=== PATIENT | male | born 1940 | race Caucasian/White ===

== ENCOUNTER 2016-10-21 16:03 | Inpatient (IN) | payer MEDICAID, OTHER ==
[~2016-10-21 16:03] MED LIST: Vancomycin 1gm in NS 250ml 1 GM/250 ML BAG IVPB SCH
[2016-10-21 16:26] VITALS: BMI 33.0
--- NOTE | 2016-10-21 17:04 | ED PDOC ---
Arrival/HPI - General Chief Complaint: Lower Extremity Problem/Injury Time Seen by Provider: 10/21/16 16:35 Historian: Patient - History of Present Illness Narrative History of Present Illness (Text): 10/21/16 17:06 A 75 year old male presents to the emergency department complaining of ten day duration skin breakage over left marc. Patient denies any chest pain, shortness of breath, fever, chills or any other complaints at this time. Time/Duration: Other (10 days) Symptom Onset: Sudden Symptom Course: Unchanged Activities at Onset: Rest Context: Home Past Medical History - Provider Review Nursing Documentation Reviewed: Yes - Infectious Disease Hx of Infectious Diseases: None - Tetanus Immunization Tetanus Immunization: Unknown - Past Medical History Past Medical History: No Previous - Cardiac Hx Cardiac Disorders: No - Pulmonary Hx Respiratory Disorders: No - Neurological Hx Neurological Disorder: No - HEENT Hx HEENT Disorder: No - Renal Hx Renal Disorder: Yes Hx Kidney Stones: Yes - Endocrine/Metabolic Hx Endocrine Disorders: No - Hematological/Oncological Hx Blood Transfusions: No Hx Blood Transfusion Reaction: No - Integumentary Hx Dermatological Disorder: No Hx Basal Cell Carcinoma: No - Musculoskeletal/Rheumatological Hx Musculoskeletal Disorders: No Hx Falls: No - Gastrointestinal Hx Gastrointestinal Disorders: Yes Hx Gastroesophageal Reflux: Yes - Genitourinary/Gynecological Hx Genitourinary Disorders: Yes Hx Prostate Problems: Yes (enlarged) - Psychiatric Hx Psychophysiologic Disorder: No Hx Substance Use: No - Past Surgical History Past Surgical History: No Previous - Anesthesia Hx Anesthesia: No Hx Anesthesia Reactions: No Hx Malignant Hyperthermia: No - Suicidal Assessment Feels Threatened In Home Enviroment: No Family/Social History - Physician Review Nursing Documentation Reviewed: Yes Family/Social History: No Known Family HX Smoking Status: Former Smoker Hx Alcohol Use: No Hx Substance Use: No Hx Substance Use Treatment: No Allergies/Home Meds Allergies/Adverse Reactions: Allergies No Known Allergies Allergy (Verified 10/21/16 16:26) Home Medications: Home Meds Medication Instructions Recorded Confirmed Glucosamine Sulfate 1 cap PO DAILY 03/05/14 10/21/16 Aspirin [Aspirin Chewable] 1 tab PO DAILY 03/26/15 10/21/16 Review of Systems - Physician Review All systems were reviewed & negative as marked: Yes Physical Exam - Physical Exam Narrative Physical Exam (Text): 10/21/16 17:04- Review of Systems Constitutional: Normal. absent: Fatigue, Weight Change, Fevers, chills Eyes: Normal ENT: Normal Respiratory: Normal absent: SOB, Cough, Sputum Cardiovascular: Normal absent: Chest pain, Palpitations, Syncope Gastrointestinal: Normal absent: Abdominal pain, Diarrhea, Nausea, Vomiting Genitourinary: Normal. absent: Dysuria, Frequency, Hematuria Musculoskeletal: Normal. absent: Arthralgias, Back Pain, Neck Pain Skin: left marc skin breakage Neurological: Normal absent: Focal Weakness Endocrine: Normal Hemo/Lymphatic: Normal Psychiatric: Normal - Physical exam Patient appears age appropriate, speaking full sentences without difficulty - Systems Exam Head: Present: Atraumatic, Normocephalic Pupils: Present: PERRL Extraocular Muscles: Present: EOMI Conjunctiva: Present: Normal Mouth: Present: Moist Mucous Membranes Neck: Present: Normal Range of Motion. No: MIDLINE TENDERNESS, Paraspinal Tenderness Respiratory/Chest: Present: Clear to Auscultation, Good Air Exchange. No: Respiratory Distress, Accessory Muscle Use, Tachypnic Cardiovascular: Present: Regular Rate and Rhythm, Normal S1, S2, Peripheral Pulses Present. No: Murmurs Abdomen: Present: Normal Bowel Sounds, No: Tenderness, Peritoneal Signs, Rebound, Guarding, Distention Back: Present: Normal Inspection. No: Midline Tenderness, Paraspinal Tenderness Upper Extremity: Present: Normal Inspection. No: Cyanosis, Edema Lower Extremity: Present: tenderness to palpation of left marc, cellulitis in region, stage 2 ulceration approximately 3 cm X 3 cm. Neurological: Present: GCS=15, Speech Normal, cranial nerves II through XII fully intact with no cerebellar abnormality, neuro-sensory fully intact. No focal neurological deficits. Skin: Present: Warm, Dry, Normal Color. No: Rashes Lymphatic: Present: OX3, NI, NC Psychiatric: Present: Alert, Oriented x 3, Normal Insight, Normal Concentration Vital Signs Reviewed: Yes Vital Signs Temp Pulse Resp BP Pulse Ox 10/21/16 17:40 80 20 119/78 98 10/21/16 16:29 98.6 F 86 18 130/78 95 Temperature: Afebrile Blood Pressure: Normal Pulse: Regular Respiratory Rate: Normal Appearance: Positive for: Well-Appearing, Non-Toxic, Comfortable Pain Distress: None Mental Status: Positive for: Alert and Oriented X 3 Medical Decision Making ED Course and Treatment: 10/21/16 17:02 Impression: A 75 year old male with skin breakage over left marc. On physical exam, patient has tenderness to palpation over left marc area, cellulitis in region, stage 2 ulceration approximately 3 cm X 3 cm. Differential Diagnosis included but are not limited to: cellulitis, venous insufficiency Plan: -- chest xray -- US lower extremity -- labs -- Reassess and disposition Prior Visits: Notes and results from previous visits were reviewed. Patient was last reported to the emergency department on 06/19/16 for evaluation of hyperglycemia. Progress Notes: 10/21/16 17:55 chest xray: Creator : TRANG WAGGONER MD IMPRESSION: No active pulmonary disease. 10/21/16 19:20 prelim read as per US tech, negative for DVT. 10/21/16 20:15 pt states he already took PO abx outpatient pt agreeable with admission to the hospital for IV abx 10/21/16 21:04 dw and signed out to Dr. Sanchez - Lab Interpretations Lab Results: 10/21/16 17:20 10/21/16 17:20 Lab Results 10/21/16 17:20: PT 11.9 H, INR 1.10 H, APTT 27.5 10/21/16 17:20: WBC 4.2 L D, RBC 4.62, Hgb 13.3 L, Hct 42.3, MCV 91.6, MCH 28.8 , MCHC 31.4, RDW 13.4, Plt Count 126, MPV 12.3 H, Gran % 64.3, Lymph % (Auto) 18.2 L, [place] % (Auto) 14.6 H, Eos % (Auto) 2.4, Baso % (Auto) 0.5, Gran # 2.68, Lymph # 0.8 L, [place] # 0.6, Eos # 0.1, Baso # 0.02 10/21/16 17:20: Sodium 142, Potassium 4.2, Chloride 104, Carbon Dioxide 24, Anion Gap 18, BUN 24 H, Creatinine 1.6 H, Est GFR ( Amer) 51, Est GFR ( Non-Af Amer) 42, Random Glucose 116 H, Calcium 9.0, Total Bilirubin 2.8 H, AST 21, ALT 19, Alkaline Phosphatase 50, NT-Pro-B Natriuret Pep 326, Total Protein 7.2, Albumin 4.3, Globulin 2.9, Albumin/Globulin Ratio 1.5 I have reviewed the lab results: Yes - RAD Interpretation Radiology Orders: 10/21/16 16:55 CHEST PORTABLE [RAD] Stat 10/21/16 16:56 DUPLEX LOWER EXTRM VEIN BILAT [US] Stat - Medication Orders Current Medication Orders: Vancomycin HCl (Vancomycin 1gm) 1 gm in 250 mls @ 133.333 mls/hr IVPB STAT STA PRN Reason: Protocol Stop: 10/21/16 22:07 - Scribe Statement The provider has reviewed the documentation as recorded by the Jovana Aguirre Provider Scribe Attestation: All medical record entries made by the Scribe were at my direction and personally dictated by me. I have reviewed the chart and agree that the record accurately reflects my personal performance of the history, physical exam, medical decision making, and the department course for this patient. I have also personally directed, reviewed, and agree with the discharge instructions and disposition. Disposition/Present on Arrival - Present on Arrival Any Indicators Present on Arrival: No History of DVT/PE: No History of Uncontrolled Diabetes: No Urinary Catheter: No History of Decub. Ulcer: No History Surgical Site Infection Following: None - Disposition Have Diagnosis and Disposition been Completed?: Yes Diagnosis: Cellulitis Disposition: HOSPITALIZED Disposition Time: 21:05 Patient Plan: Admission Condition: FAIR Discharge Instructions (ExitCare): Cellulitis (ED) Referrals: Rena Leal MD [Primary Care Provider] - Follow up with primary
[2016-10-21 17:45] LABS: BASO # 0.02 K/mm3 (0.0-2.0); BASO % 0.5 % (0.0-3.0); EOS # 0.1 (0.0-0.7); EOS % 2.4 % (1.5-5.0); GRAN # 2.68 (1.4-6.5); GRAN % 64.3 % (50.0-68.0); HEMOGLOBIN 13.3 gm/dL (14.0-18.0); LYMPH # 0.8 (1.2-3.4); LYMPH % 18.2 % (22.0-35.0); MEAN CELL VOLUME 91.6 fL (80.0-105.0); MEAN CORPUSCULAR HEMOGLOBIN 28.8 pg (25.0-35.0); MEAN CORPUSCULAR HGB CONC 31.4 g/dl (31.0-37.0); MEAN PLATELET VOLUME 12.3 fl (7.0-11.0); MONO # 0.6 (0.1-0.6); MONO % 14.6 % (1.0-6.0); PLATELET COUNT 126 10^3/uL (120.0-450.0); RBC 4.62 10^6/uL (3.5-6.1); RED CELL DISTRIBUTION WIDTH 13.4 % (11.5-14.5); WHITE BLOOD COUNT 4.2 10^3/ul (4.5-11.0)
[2016-10-21 17:51] LABS: ALB/GLOB RATIO 1.5 (1.1-1.8); ALBUMIN 4.3 g/dL (3.0-4.8)
[2016-10-21 17:52] LABS: INR 1.1 (0.93-1.08); PARTIAL THROMBOPLASTIN TIME 27.5 Seconds (23.7-30.8); PROTHROMBIN TIME 11.9 Seconds (9.9-11.8)
--- NOTE | 2016-10-21 17:52 | RAD ---
HISTORY: cough COMPARISON: 03/27/2015 FINDINGS: LUNGS: The lungs are well inflated and clear. PLEURA: No significant pleural effusion identified, no pneumothorax apparent. CARDIOVASCULAR: Normal. OSSEOUS STRUCTURES: No significant abnormalities. VISUALIZED UPPER ABDOMEN: Normal. OTHER FINDINGS: None. IMPRESSION: No active pulmonary disease.
[2016-10-21] MEDS ORDERED: Vancomycin 1gm in NS 250ml 1 GM/250 ML BAG IVPB STA (20:15)
--- NOTE | 2016-10-22 02:39 | CP.PCM.HP ---
Addendum entered and electronically signed by Logan Saucedo MD 08:51: Constitutional: a&o x 4, nad Head and Neck: neck supple, no jvd, trachea midline, carotid midline,no cervical /head mass Eyes: jessenia, nonicteric sclera, eom intact ENT: auditory acuity grossly intact, throat not congested, no nasal deformity Cardio: rrr, no m/r/g, no carotid bruit, nml s1, s2 Pulm: no accessory muscle use, equal nml breath sounds bilaterally, ctab Abd: s/nt/nd, nbs x 4 q, no palpable masses Derm: no rashes, no ulcers, no lesions Extr: + edema, + LLE erythema, abrasion, +LLE warmth, +LLE tenderness, +LLE varicosities; no cyanosis, no calf tenderness, Neuro: cn II-XII grossly intact, ue and le 3+ muscle strength bilaterally, no los ue, le bilaterally and core Original Note: <Logan Saucedo - Last Filed: 10/22/16 04:19> History of Present Illness - History of Present Illness History of Present Illness: 75 y/o male with PMHx significant for venous insufficiency presents with c/o LLE abrasion of 30 days duration. Patient states that he hit his knee with a sharp object 30 days ago, and since then he has developed an infection per his doctor, Dr. Leal. Patient denies fevers, chills, shortness of breath, chest pain, nausea, vomiting, or diarrhea. Present on Admission - Present on Admission Any Indicators Present on Admission: No History of DVT/PE: No History of Uncontrolled Diabetes: No Urinary Catheter: No Decubitus Ulcer Present: No - Notes: Notes:: Abrasion present on left lower extremity (marc) Review of Systems - Review of Systems Systems not reviewed;Unavailable: Language Barrier - Constitutional Constitutional: As Per HPI. absent: Chills, Fatigue, Fever - EENT Eyes: As Per HPI Ears: As Per HPI Nose/Mouth/Throat: As Per HPI - Cardiovascular Cardiovascular: absent: Chest Pain, Dyspnea, Pain Radiating to Arm/Neck/Jaw - Respiratory Respiratory: absent: Cough, Dyspnea, Wheezing - Gastrointestinal Gastrointestinal: absent: Diarrhea, Nausea, Vomiting - Genitourinary Genitourinary: As Per HPI Additional comments: Patient takes flomax for BPH which relieves symptoms. - Musculoskeletal Musculoskeletal: As Per HPI - Integumentary Integumentary: As Per HPI - Neurological Neurological: absent: Sensory Deficit, Weakness Past Patient History - Infectious Disease Hx of Infectious Diseases: None - Tetanus Immunizations Tetanus Immunization: Unknown - Past Medical History & Family History Past Medical History?: Yes - Past Social History Smoking Status: Never Smoked Chewing Tobacco Use: No Cigar Use: No Alcohol: None Drugs: Denies - CARDIAC Hx Cardiac Disorders: No Hx Hypertension: Yes Hx Peripheral Vascular Disease: Yes (Venous insufficiency) - PULMONARY Hx Respiratory Disorders: No Hx Asthma: No Hx Bronchitis: No Hx Chronic Obstructive Pulmonary Disease (COPD): No Hx Emphysema: No Hx Lung Cancer: No Hx Pneumonia: No Hx Pulmonary Edema: No Hx Pulmonary Embolism: No Hx Respiratory Aspiration: No Hx Respiratory Tract Infection: No Hx Sleep Apnea: No Hx Tuberculosis: No - NEUROLOGICAL Hx Neurological Disorder: No - HEENT Hx HEENT Problems: No - RENAL Hx Chronic Kidney Disease: Yes Hx Kidney Stones: Yes - ENDOCRINE/METABOLIC Hx Endocrine Disorders: No - HEMATOLOGICAL/ONCOLOGICAL Hx Blood Disorders: No - INTEGUMENTARY Hx Dermatological Problems: No - MUSCULOSKELETAL/RHEUMATOLOGICAL Hx Musculoskeletal Disorders: No Hx Falls: No - GASTROINTESTINAL Hx Gastrointestinal Disorders: Yes Hx Gastroesophageal Reflux: Yes - GENITOURINARY/GYNECOLOGICAL Hx Genitourinary Disorders: Yes Hx Prostate Problems: Yes (enlarged) - PSYCHIATRIC Hx Psychophysiologic Disorder: No - SURGICAL HISTORY Hx Surgeries: No - ANESTHESIA Hx Anesthesia: No Hx Anesthesia Reactions: No Hx Malignant Hyperthermia: No Meds Allergies/Adverse Reactions: Allergies Allergy/AdvReac Type Severity Reaction Status Date / Time No Known Allergies Allergy Verified 10/21/16 16:26 Results - Vital Signs Recent Vital Signs: Last Vital Signs Temp 98.3 F 10/22/16 00:43 Pulse 70 10/22/16 00:43 Resp 20 10/22/16 00:43 BP 117/65 10/22/16 00:43 Pulse Ox 96 10/21/16 23:01 - Labs Result Diagrams: 10/21/16 17:20 10/21/16 17:20 Assessment & Plan - Assessment and Plan (Free Text) Assessment: Assessment: 1.) Left Lower Extremity Abrasion - Infected 2.) Hx/O HTN 3.) Hx/O BPH Plan: 1.) Consult Vascular Surgery and Wound Care; ECHO to r/o CHF for leg swelling; Start Patient on Vancomycin 1 gm in 250 mL IVPB Q12 2.) Contact patient's PCP (Dr. Leal) to continue routine medications for HTN 3.) Continue Flomax 4.) Heart Healthy Diet 5.) DVT PHXS a.) Elevate affected extremity b.) OOB as tolerated <Jb Sanchez P - Last Filed: 10/24/16 06:39> Results - Vital Signs Recent Vital Signs: Last Vital Signs Temp 98.3 F 10/23/16 16:00 Pulse 74 10/23/16 16:00 Resp 18 10/23/16 16:00 BP 123/73 10/23/16 16:00 Pulse Ox 98 10/23/16 16:00 - Labs Result Diagrams: 10/23/16 06:10 10/23/16 06:10 Labs: Laboratory Results - last 24 hr 10/23/16 10/23/16 10/23/16 06:10 06:10 06:10 WBC 4.9 RBC 4.76 Hgb 13.5 L Hct 43.2 MCV 90.8 MCH 28.4 MCHC 31.3 RDW 13.4 Plt Count 136 MPV 12.5 H Sodium 139 Potassium 4.4 Chloride 108 H Carbon Dioxide 23 Anion Gap 12 BUN 15 Creatinine 1.3 Est GFR ( Amer) > 60 Est GFR (Non-Af Amer) 54 Random Glucose 103 Hemoglobin A1c 5.2 Calcium 8.7 Total Bilirubin 3.1 H Direct Bilirubin AST 20 ALT 21 Alkaline Phosphatase 48 Total Protein 6.7 Albumin 3.9 Globulin 2.9 Albumin/Globulin Ratio 1.3 10/23/16 07:30 WBC RBC Hgb Hct MCV MCH MCHC RDW Plt Count MPV Sodium Potassium Chloride Carbon Dioxide Anion Gap BUN Creatinine Est GFR ( Amer) Est GFR (Non-Af Amer) Random Glucose Hemoglobin A1c Calcium Total Bilirubin Direct Bilirubin 0.8 H AST ALT Alkaline Phosphatase Total Protein Albumin Globulin Albumin/Globulin Ratio Attending/Attestation - Attestation I have personally seen and examined this patient.: Yes I have fully participated in the care of the patient.: Yes I have reviewed all pertinent clinical information: Yes Notes (Text): 10/24/16 06:37 In addition please add in assessment chronic venous insufficiency, and varicose veins b/l, current slow healing ulcer secondary to same, will be empirically treated for infn, patient provided with and would need education about wound care and leg elevation.
[2016-10-22] MEDS ORDERED: Vancomycin 1gm in NS 250ml 1 GM/250 ML BAG IVPB SCH (09:00)
--- NOTE | 2016-10-22 12:56 | US ---
HISTORY: Leg pain and swelling. Evaluate for DVT PHYSICIAN(S): Kenn Shahid MD. TECHNIQUE: Duplex sonography and color-flow Doppler with graded compression were used to evaluate the deep venous systems of both lower extremities. FINDINGS: The visualized deep venous systems of both lower extremities are sonographically normal and compressible. Normal wave forms and augmentation are seen. There is no sonographic evidence for deep venous thrombosis in the visualized segments of both lower extremities. IMPRESSION: No sonographic evidence for deep venous thrombosis in the visualized segments of both lower extremities.
--- NOTE | 2016-10-22 14:05 | CP.PCM.CON ---
History of Present Illness - History of Present Illness History of Present Illness: LEFT LEG ERYTHEMA RIGHT LEG ULCER Review of Systems - Constitutional Constitutional: absent: As Per HPI, Anorexia, Chills, Daytime Sleepiness, Excessive Sweating, Fatigue, Fever, Frequent Falls, Headache, Increased Appetite , Lethargy, Malaise, Night Sweats, Snoring, Sleep Apnea, Weight Gain, Weight Loss, Weakness, Other - EENT Eyes: As Per HPI, Blind Spots, Blurred Vision, Change in Vision, Decreased Night Vision, Diplopia, Discharge, Dry Eye, Exophthalmos, Floaters, Irritation, Itchy Eyes, Loss of Peripheral Vision, Pain, Photophobia, Requires Corrective Lenses, Sees Flashes, Spots in Vision, Tunnel Vision, Other Visual Disturbances , Loss of Vision, Other Ears: absent: As Per HPI, Decreased Hearing, Ear Discharge, Ear Pain, Tinnitus, Abnormal Hearing, Disequilibrium, Dizziness, Other Nose/Mouth/Throat: absent: As Per HPI, Epistaxis, Nasal Congestion, Nasal Discharge, Nasal Obstruction, Nasal Trauma, Nose Pain, Post Nasal Drip, Sinus Pain, Sinus Pressure, Bleeding Gums, Change in Voice, Dental Pain, Dry Mouth, Dysphagia, Halitosis, Hoarsness, Lip Swelling, Mouth Lesions, Mouth Pain, Odynophagia, Sore Throat, Throat Swelling, Tongue Swelling, Facial Pain, Neck Pain, Neck Mass, Other - Cardiovascular Cardiovascular: absent: As Per HPI, Acrocyanosis, Chest Pain, Chest Pain at Rest , Chest Pain with Activity, Claudication, Diaphoresis, Dyspnea, Dyspnea on Exertion, Edema, Irregular Heart Rhythm, Pain Radiating to Arm/Neck/Jaw, Leg Edema, Leg Ulcers, Lightheadedness, Orthopnea, Palpitations, Paroxysmal Nocturnal Dyspnea, Pedal Edema, Radiating Pain, Rapid Heart Rate, Slow Heart Rate, Syncope, Other - Respiratory Respiratory: absent: As Per HPI, Cough, Dyspnea, Hemoptysis, Dyspnea on Exertion , Wheezing, Snoring, Stridor, Pain on Inspiration, Chest Congestion, Excessive Mucous Production, Change in Mucous Color, Pain with Coughing, Other - Gastrointestinal Gastrointestinal: absent: As Per HPI, Abdominal Pain, Belching, Bloating, Change in Bowel Habits, Change in Stool Character, Coffee Ground Emesis, Constipation, Cramping, Diarrhea, Dyspepsia, Dysphagia, Early Satiety, Excessive Flatus, Fecal Incontinence, Heartburn, Hematemesis, Hematochezia, Loose Stools, Melena, Nausea, Odynophagia, Temesmus, Vomiting, Other - Genitourinary Genitourinary: absent: As Per HPI, Change in Urinary Stream, Difficulty Urinating, Dysuria, Flank Pain, Hematuria, Pyuria, Nocturia, Urinary Incontinence, Urinary Frequency, Urinary Hesitance, Urinary Urgency, Voiding Freq/Small Amts, Freq UTI, Hx Renal/Bladder Calculi, Hx /Renal Surgery, Bladder Distension, Other - Reproductive: Male Reproductive:Male: As Per HPI, Prepubesant, Dyspareunia, Genital Lesions, Genital Pruritis, Pelvic Pain, Sexual Dysfunction, Penile Discharge, Genital Odor, Impotence, On ED Medications, Penile Implant, Other - Integumentary Integumentary: Dry Skin, Erythema, Lesions, Swelling - Neurological Neurological: absent: As Per HPI, Abnormal Gait, Abnormal Hearing, Abnormal Movements, Abnormal Speech, Behavioral Changes, Burning Sensations, Confusion, Convulsions, Disequilibrium, Dizziness, Numbness, Focal Weakness, Frequent Falls , Headaches, Lack of Coordination, Loss of Vision, Memory Loss, Paresthesias, Radicular Pain, Restless Legs, Sensory Deficit, Syncope, Tingling, Tremor, Vertigo, Weakness, Other Visual Disturbances, Other - Psychiatric Psychiatric: absent: As Per HPI, Abnormal Sleep Pattern, Anhedonia, Anxiety, Auditory Hallucinations, Behavioral Changes, Change in Appetite, Change in Libido, Confusion, Depression, Difficulty Concentrating, Hallucinations, Homicidal Ideation, Hopelessness, Irritability, Memory Loss, Mood Swings, Panic Attacks, Paranoia, Suicidal Ideation, Visual Hallucinations, Tactile Hallucinations, Other - Endocrine Endocrine: absent: As Per HPI, Change in Body Appearance, Change in Libido, Cold Intolorance, Deepening of Voice, Excessive Sweating, Fatigue, Flushing, Heat Intolorance, Increase in Ring/Shoe/Hat Size, Palpitations, Polydipsia, Polyphagia, Polyuria, Other - Hematologic/Lymphatic Hematologic: absent: As Per HPI, Easy Bleeding, Easy Bruising, Lymphadenopathy, Other Past Patient History - Infectious Disease Hx of Infectious Diseases: None - Tetanus Immunizations Tetanus Immunization: Unknown - Past Medical History & Family History Past Medical History?: Yes - Past Social History Smoking Status: Never Smoked Chewing Tobacco Use: No Cigar Use: No Alcohol: None Drugs: Denies - CARDIAC Hx Cardiac Disorders: No Hx Hypertension: Yes Hx Peripheral Vascular Disease: Yes (Venous insufficiency) - PULMONARY Hx Respiratory Disorders: No Hx Asthma: No Hx Bronchitis: No Hx Chronic Obstructive Pulmonary Disease (COPD): No Hx Emphysema: No Hx Lung Cancer: No Hx Pneumonia: No Hx Pulmonary Edema: No Hx Pulmonary Embolism: No Hx Respiratory Aspiration: No Hx Respiratory Tract Infection: No Hx Sleep Apnea: No Hx Tuberculosis: No - NEUROLOGICAL Hx Neurological Disorder: No - HEENT Hx HEENT Problems: No - RENAL Hx Chronic Kidney Disease: Yes Hx Kidney Stones: Yes - ENDOCRINE/METABOLIC Hx Endocrine Disorders: No - HEMATOLOGICAL/ONCOLOGICAL Hx Blood Disorders: No - INTEGUMENTARY Hx Dermatological Problems: No - MUSCULOSKELETAL/RHEUMATOLOGICAL Hx Musculoskeletal Disorders: No Hx Falls: No - GASTROINTESTINAL Hx Gastrointestinal Disorders: Yes Hx Gastroesophageal Reflux: Yes - GENITOURINARY/GYNECOLOGICAL Hx Genitourinary Disorders: Yes Hx Prostate Problems: Yes (enlarged) - PSYCHIATRIC Hx Psychophysiologic Disorder: No - SURGICAL HISTORY Hx Surgeries: No - ANESTHESIA Hx Anesthesia: No Hx Anesthesia Reactions: No Hx Malignant Hyperthermia: No Meds Allergies/Adverse Reactions: Allergies Allergy/AdvReac Type Severity Reaction Status Date / Time No Known Allergies Allergy Verified 10/21/16 16:26 - Medications Medications: Current Medications Aspirin (Aspirin Chewable) 81 mg PO DAILY [facility] Last Admin: 10/22/16 10:19 Dose: 81 mg Linezolid (Zyvox 600mg/300ml D5w) 600 mg in 300 mls @ 200 mls/hr IVPB Q12 [facility] PRN Reason: Protocol Stop: 10/31/16 13:59 Tamsulosin HCl (Flomax) 0.4 mg PO DAILY [facility] Last Admin: 10/22/16 10:19 Dose: 0.4 mg Physical Exam - Constitutional Appears: Well - Head Exam Head Exam: ATRAUMATIC, NORMAL INSPECTION, NORMOCEPHALIC - Eye Exam Eye Exam: EOMI, Normal appearance, PERRL Pupil Exam: NORMAL ACCOMODATION, PERRL - ENT Exam ENT Exam: Mucous Membranes Moist, Normal Exam - Neck Exam Neck exam: Positive for: Normal Inspection - Respiratory Exam Respiratory Exam: Clear to Auscultation Bilateral, NORMAL BREATHING PATTERN - Cardiovascular Exam Cardiovascular Exam: REGULAR RHYTHM - GI/Abdominal Exam GI & Abdominal Exam: Normal Bowel Sounds, Soft. absent: Tenderness - Rectal Exam Rectal Exam: NORMAL INSPECTION - Exam Exam: Circumcision, NORMAL INSPECTION External exam: NORMAL EXTERNAL EXAM Speculum exam: NORMAL SPECULUM EXAM Bimanual exam: NORMAL BIMANUAL EXAM - Extremities Exam Extremities exam: Positive for: normal inspection - Expanded Lower Extremities Exam Left Lower Leg Exam: abrasion, erythema, swelling, tenderness Right Lower Leg Exam: abrasion (ULCER OF RIGHT LEG) - Back Exam Back exam: NORMAL INSPECTION - Neurological Exam Neurological exam: Alert, CN II-XII Intact, Normal Gait, Oriented x3, Reflexes Normal - Psychiatric Exam Psychiatric exam: Normal Affect, Normal Mood - Skin Skin Exam: Dry, Intact, Normal Color, Warm Results - Vital Signs Recent Vital Signs: Last Vital Signs Temp 98.0 F 10/22/16 08:21 Pulse 75 10/22/16 08:21 Resp 20 10/22/16 08:21 BP 118/72 10/22/16 08:21 Pulse Ox 94 L 10/22/16 08:21 - Labs Result Diagrams: 10/21/16 17:20 10/21/16 17:20 Assessment & Plan (1) Cellulitis of left leg Status: Acute (2) Ulcer of right leg Status: Acute (3) Renal disease Status: Acute - Assessment and Plan (Free Text) Plan: ZYVOX WOUND CULTURE POD VASCULAR MRI R/O OSTEO RENAL EVAL - Date & Time Date: 10/22/16 Time: 14:00
[2016-10-22] MEDS: Linezolid 600 mg in D5W 300 ml 600 MG/300 ML BAG IVPB SCH (15:26)
[2016-10-22 16:21] LABS: HEMOGLOBIN 12.8 gm/dL (14.0-18.0); MEAN CELL VOLUME 90.7 fL (80.0-105.0); MEAN CORPUSCULAR HEMOGLOBIN 28.4 pg (25.0-35.0); MEAN CORPUSCULAR HGB CONC 31.3 g/dl (31.0-37.0); MEAN PLATELET VOLUME 12.6 fl (7.0-11.0); RBC 4.51 10^6/uL (3.5-6.1); RED CELL DISTRIBUTION WIDTH 13.5 % (11.5-14.5); WHITE BLOOD COUNT 4.3 10^3/ul (4.5-11.0)
[2016-10-22 16:28] LABS: ALB/GLOB RATIO 1.4 (1.1-1.8); ALBUMIN 3.8 g/dL (3.0-4.8); ALT/SGPT 23 U/L (7-56); AST/SGOT 22 U/L (15-59); BLOOD UREA NITROGEN 20 mg/dL (7-21); CALCIUM 8.1 mg/dL (8.4-10.5); GFR AFRICAN-AMERICAN > 60; GFR NON-AFRICAN AMERICAN 54
[2016-10-22] MEDS: Sodium Chloride 0.9% 1,000 ML IV SCH (16:30)
[2016-10-23] MEDS: Sodium Chloride 0.9% 1,000 ML IV SCH ×2 (05:45→21:49)
[2016-10-23 07:05] LABS: HEMOGLOBIN 13.5 gm/dL (14.0-18.0); MEAN CELL VOLUME 90.8 fL (80.0-105.0); MEAN CORPUSCULAR HEMOGLOBIN 28.4 pg (25.0-35.0); MEAN CORPUSCULAR HGB CONC 31.3 g/dl (31.0-37.0); MEAN PLATELET VOLUME 12.5 fl (7.0-11.0); RBC 4.76 10^6/uL (3.5-6.1); RED CELL DISTRIBUTION WIDTH 13.4 % (11.5-14.5); WHITE BLOOD COUNT 4.9 10^3/ul (4.5-11.0)
[2016-10-23 07:27] LABS: ALB/GLOB RATIO 1.3 (1.1-1.8); ALBUMIN 3.9 g/dL (3.0-4.8); ALT/SGPT 21 U/L (7-56); AST/SGOT 20 U/L (15-59); BLOOD UREA NITROGEN 15 mg/dL (7-21); CALCIUM 8.7 mg/dL (8.4-10.5); GFR AFRICAN-AMERICAN > 60; GFR NON-AFRICAN AMERICAN 54
[2016-10-23] MEDS: Linezolid 600 mg in D5W 300 ml 600 MG/300 ML BAG IVPB SCH ×2 (10:17→21:51)
--- NOTE | 2016-10-23 11:10 | MRI ---
PROCEDURE: MRI of the left lower extremity without contrast HISTORY: R/O Osteomyelitis COMPARISON: TECHNIQUE: MRI of the left lower extremity was performed in multiple planes using multiple pulse sequences. FINDINGS: There is a moderate amount of subcutaneous edema along the medial side of the distal tibia. The findings are consistent with cellulitis versus passive edema. There is no marrow edema to suggest osteomyelitis. There is no evidence of a discrete abscess. IMPRESSION: No evidence of osteomyelitis
--- NOTE | 2016-10-23 15:46 | CP.PCM.PN ---
<BERNARD MONTANEZ - Last Filed: 10/23/16 15:59> Subjective - Date & Time of Evaluation Date of Evaluation: 10/23/16 Time of Evaluation: 10:20 - Subjective Subjective: Patient was seen and examined bedside. The patient denied any chest pain, palpitations, shortness of breath, n/v/d, fevers or night sweats. He states that the pain has been getting better but is still present around the area of abrasion. Objective - Vital Signs/Intake and Output Vital Signs (last 24 hours): Temp Pulse Resp BP Pulse Ox 98 F 71 18 97/57 L 98 10/23/16 07:30 10/23/16 07:30 10/23/16 07:30 10/23/16 07:30 10/23/16 07:30 Intake and Output: 10/23/16 10/23/16 06:59 18:59 Intake Total 1330 600 Balance 1330 600 - Medications Medications: Current Medications Acetaminophen (Tylenol 325mg Tab) 650 mg PO Q6H PRN PRN Reason: Pain, moderate (4-7) Aspirin (Aspirin Chewable) 81 mg PO DAILY [facility] Last Admin: 10/23/16 10:18 Dose: 81 mg Linezolid (Zyvox 600mg/300ml D5w) 600 mg in 300 mls @ 200 mls/hr IVPB Q12 SERA PRN Reason: Protocol Stop: 10/31/16 13:59 Last Admin: 10/23/16 10:17 Dose: 200 mls/hr Sodium Chloride (Sodium Chloride 0.9%) 1,000 mls @ 75 mls/hr IV .[id number] [facility] Last Admin: 10/23/16 05:45 Dose: 75 mls/hr Tamsulosin HCl (Flomax) 0.4 mg PO DAILY [facility] Last Admin: 10/23/16 10:18 Dose: 0.4 mg - Labs Labs: 10/23/16 06:10 10/23/16 06:10 PT 11.9 Seconds (9.9-11.8) H 10/21/16 17:20 INR 1.10 (0.93-1.08) H 10/21/16 17:20 APTT 27.5 Seconds (23.7-30.8) 10/21/16 17:20 - Constitutional Appears: Well, Non-toxic, No Acute Distress - Head Exam Head Exam: ATRAUMATIC, NORMAL INSPECTION, NORMOCEPHALIC - Eye Exam Eye Exam: EOMI, Normal appearance, PERRL - ENT Exam ENT Exam: Mucous Membranes Moist, Normal Exam - Respiratory Exam Respiratory Exam: Clear to Ausculation Bilateral, NORMAL BREATHING PATTERN. absent: Chest Wall Tenderness, Rales, Rhonchi, Wheezes, Respiratory Distress - Cardiovascular Exam Cardiovascular Exam: RRR, +S1, +S2. absent: Gallop, Rubs, Murmur - GI/Abdominal Exam GI & Abdominal Exam: Normal Bowel Sounds. absent: Distended, Tenderness - Neurological Exam Neurological Exam: Alert, Awake, Normal Gait, Oriented x3 - Psychiatric Exam Psychiatric exam: Normal Affect, Normal Mood - Skin Skin Exam: Abrasion, Erythema (Area of erythema around abrasion has decreased from marked outline placed yesterday), Warm. absent: Cyanosis, Pallor Assessment and Plan - Assessment and Plan (Free Text) Assessment: 75 y/o male with PMHx significant for venous insufficiency presents with c/o LLE abrasion. 1. LLE Cellulitis 2. RLE ulcer 3. BPH Plan: 1. LLE Cellulitis - continue Zyvox - consult ID, follow recs - wound and blood cx negative - MRI (10/23) LLE showed subQ edema consistent with cellulitis vs passive edema. No evidence of osteomyelitis or abscess. 2. RLE ulcer - consult podiatry, follow recs 3. BPH - continue Flomax Diet: HHD Patient seen, discussed and evaluated with attending, Dr. Crystal Montanez, PGY1 <Elly Rojas B - Last Filed: 10/23/16 18:00> Objective - Vital Signs/Intake and Output Vital Signs (last 24 hours): Temp Pulse Resp BP Pulse Ox 98.3 F 74 18 123/73 98 10/23/16 16:00 10/23/16 16:00 10/23/16 16:00 10/23/16 16:00 10/23/16 16:00 Intake and Output: 10/23/16 10/23/16 06:59 18:59 Intake Total 1330 600 Balance 1330 600 - Medications Medications: Current Medications Acetaminophen (Tylenol 325mg Tab) 650 mg PO Q6H PRN PRN Reason: Pain, moderate (4-7) Aspirin (Aspirin Chewable) 81 mg PO DAILY [facility] Last Admin: 10/23/16 10:18 Dose: 81 mg Linezolid (Zyvox 600mg/300ml D5w) 600 mg in 300 mls @ 200 mls/hr IVPB Q12 SERA PRN Reason: Protocol Stop: 10/31/16 13:59 Last Admin: 10/23/16 10:17 Dose: 200 mls/hr Sodium Chloride (Sodium Chloride 0.9%) 1,000 mls @ 75 mls/hr IV .[id number] [facility] Last Admin: 10/23/16 05:45 Dose: 75 mls/hr Tamsulosin HCl (Flomax) 0.4 mg PO DAILY [facility] Last Admin: 10/23/16 10:18 Dose: 0.4 mg - Labs Labs: 10/23/16 06:10 10/23/16 06:10 PT 11.9 Seconds (9.9-11.8) H 10/21/16 17:20 INR 1.10 (0.93-1.08) H 10/21/16 17:20 APTT 27.5 Seconds (23.7-30.8) 10/21/16 17:20 Attending/Attestation - Attestation I have personally seen and examined this patient.: Yes I have fully participated in the care of the patient.: Yes I have reviewed all pertinent clinical information, including history, physical exam and plan: Yes Notes (Text): I have seen and examined the patient at bedside. Agree with the note above with the following additions/ exceptions: This is 75 year old male with history of BPH who was admitted for LLE cellulitis and right lower extremity ulcer. MRI pending. Podiatry consult pending. Patient is on zyvox. Wound cx pending. Procal is low. Upon discharge patient will follow up with Rena Gordon. Dr Elly Rojas
[2016-10-24 07:12] LABS: ALB/GLOB RATIO 1.3 (1.1-1.8); ALBUMIN 3.4 g/dL (3.0-4.8); ALT/SGPT 23 U/L (7-56); AST/SGOT 19 U/L (15-59); BLOOD UREA NITROGEN 13 mg/dL (7-21); CALCIUM 8.4 mg/dL (8.4-10.5); GFR AFRICAN-AMERICAN > 60; GFR NON-AFRICAN AMERICAN 54
[2016-10-24 07:21] LABS: HEMOGLOBIN 12.5 gm/dL (14.0-18.0); MEAN CELL VOLUME 91.1 fL (80.0-105.0); MEAN CORPUSCULAR HEMOGLOBIN 28.7 pg (25.0-35.0); MEAN CORPUSCULAR HGB CONC 31.5 g/dl (31.0-37.0); MEAN PLATELET VOLUME 12.7 fl (7.0-11.0); RBC 4.36 10^6/uL (3.5-6.1); RED CELL DISTRIBUTION WIDTH 13.5 % (11.5-14.5); WHITE BLOOD COUNT 4.9 10^3/ul (4.5-11.0)
[2016-10-24] MEDS: Linezolid 600 mg in D5W 300 ml 600 MG/300 ML BAG IVPB SCH (10:21)
--- NOTE | 2016-10-24 10:30 | CP.PCM.PN ---
<Ruchi Nicole - Last Filed: 10/24/16 10:27> Subjective - Date & Time of Evaluation Date of Evaluation: 10/24/16 Time of Evaluation: 10:29 - Subjective Subjective: 75 year old male was seen resting comfortably with attending, Dr. Helms regarding left marc abrasion and right ankle abrasion. Patient has a dressing to his left marc. He currently denies any pain. Denies any n/v/f/c/sob/cp. Objective - Vital Signs/Intake and Output Vital Signs (last 24 hours): Temp Pulse Resp BP Pulse Ox 98.3 F 74 18 123/73 98 10/23/16 16:00 10/23/16 16:00 10/23/16 16:00 10/23/16 16:00 10/23/16 16:00 Intake and Output: 10/24/16 10/24/16 06:59 18:59 Intake Total 900 Balance 900 - Medications Medications: Current Medications Acetaminophen (Tylenol 325mg Tab) 650 mg PO Q6H PRN PRN Reason: Pain, moderate (4-7) Aspirin (Aspirin Chewable) 81 mg PO DAILY [facility] Last Admin: 10/24/16 10:21 Dose: 81 mg Linezolid (Zyvox 600mg/300ml D5w) 600 mg in 300 mls @ 200 mls/hr IVPB Q12 SERA PRN Reason: Protocol Stop: 10/31/16 13:59 Last Admin: 10/24/16 10:21 Dose: 200 mls/hr Sodium Chloride (Sodium Chloride 0.9%) 1,000 mls @ 75 mls/hr IV .[id number] [facility] Last Admin: 10/23/16 21:49 Dose: 75 mls/hr Tamsulosin HCl (Flomax) 0.4 mg PO DAILY [facility] Last Admin: 10/24/16 10:21 Dose: 0.4 mg - Labs Labs: 10/24/16 06:45 10/24/16 06:45 PT 11.9 Seconds (9.9-11.8) H 10/21/16 17:20 INR 1.10 (0.93-1.08) H 10/21/16 17:20 APTT 27.5 Seconds (23.7-30.8) 10/21/16 17:20 - Constitutional Appears: Well, Non-toxic, No Acute Distress - Extremities Exam Additional comments: Lower extremity focused exam: Vasc: DP and PT pulses palpable, CFT <4 seconds to all digits. Skin temperature increased to the left anterior marc. Neuro: Gross sensation intact b/l Ortho: Tenderness on palpation to left anterior marc Derm: Superficial abrasion noted to the lateral side of the right ankle, base is granular, no drainage, no malodor, no probe to bone noted. Superfical abrasion noted to the anteiror aspect of the left marc measuring approximately 6 cm by 4 cm, the periwound is erythematous, with calor, no malodor, no probe to bone noted, no drainage noted. - Neurological Exam Neurological Exam: Alert, Awake, Oriented x3 - Psychiatric Exam Psychiatric exam: Normal Affect, Normal Mood Assessment and Plan - Assessment and Plan (Free Text) Assessment: 75 year old male with abrasions noted to the right ankle and left anterior leg Plan: patient examined and evaluated with attending, Dr. Helms chart, labs, vitals reviewed;afebrile, WBC 4.9 wound culture obtained from left anterior leg wound wounds cleansed with normal sterile saline right ankle wound dressed with optifoam left anterior leg wound dressed with hydrocolloid dressing upon d/c patient to follow up with [facility] patient to have VNA change dressing MWF with foam dressing and silver dressing b /l podiatry will continue to follow patient while in house <Lauren Helms - Last Filed: 10/26/16 14:51> Objective - Vital Signs/Intake and Output Vital Signs (last 24 hours): Temp Pulse Resp BP Pulse Ox 97.9 F 75 20 130/74 97 10/24/16 17:26 10/24/16 17:26 10/24/16 17:26 10/24/16 17:26 10/24/16 17:26 - Labs Labs: 10/24/16 06:45 10/24/16 06:45 PT 11.9 Seconds (9.9-11.8) H 10/21/16 17:20 INR 1.10 (0.93-1.08) H 10/21/16 17:20 APTT 27.5 Seconds (23.7-30.8) 10/21/16 17:20 Attending/Attestation - Attestation I have personally seen and examined this patient.: Yes I have fully participated in the care of the patient.: Yes I have reviewed all pertinent clinical information, including history, physical exam and plan: Yes
--- NOTE | 2016-10-24 11:46 | CP.PCM.PN ---
Subjective - Date & Time of Evaluation Date of Evaluation: 10/24/16 Time of Evaluation: 11:00 - Subjective Subjective: Left leg continues to improve according to the patient with less swelling and less pain. Objective - Vital Signs/Intake and Output Vital Signs (last 24 hours): Temp Pulse Resp BP Pulse Ox 98 F 71 18 97/57 L 98 10/23/16 07:30 10/23/16 07:30 10/23/16 07:30 10/23/16 07:30 10/23/16 07:30 Intake and Output: 10/23/16 10/23/16 06:59 18:59 Intake Total 1330 600 Balance 1330 600 - Medications Medications: Current Medications Acetaminophen (Tylenol 325mg Tab) 650 mg PO Q6H PRN PRN Reason: Pain, moderate (4-7) Aspirin (Aspirin Chewable) 81 mg PO DAILY [facility] Last Admin: 10/22/16 10:19 Dose: 81 mg Linezolid (Zyvox 600mg/300ml D5w) 600 mg in 300 mls @ 200 mls/hr IVPB Q12 SERA PRN Reason: Protocol Stop: 10/31/16 13:59 Last Admin: 10/22/16 15:26 Dose: 200 mls/hr Sodium Chloride (Sodium Chloride 0.9%) 1,000 mls @ 75 mls/hr IV .[id number] [facility] Last Admin: 10/23/16 05:45 Dose: 75 mls/hr Tamsulosin HCl (Flomax) 0.4 mg PO DAILY [facility] Last Admin: 10/22/16 10:19 Dose: 0.4 mg - Labs Labs: 10/23/16 06:10 10/23/16 06:10 PT 11.9 Seconds (9.9-11.8) H 10/21/16 17:20 INR 1.10 (0.93-1.08) H 10/21/16 17:20 APTT 27.5 Seconds (23.7-30.8) 10/21/16 17:20 - Constitutional Appears: Non-toxic, No Acute Distress - Head Exam Head Exam: NORMAL INSPECTION - ENT Exam ENT Exam: Mucous Membranes Moist - Neck Exam Neck Exam: absent: Meningismus - Respiratory Exam Respiratory Exam: Decreased Breath Sounds - Cardiovascular Exam Cardiovascular Exam: +S1, +S2 - GI/Abdominal Exam GI & Abdominal Exam: Soft. absent: Tenderness - Extremities Exam Additional comments: left leg (anterior portion) with some erythema but less swelling Assessment and Plan - Assessment and Plan (Free Text) Plan: Assessment left lower extremity skin and skin structure infection chronic venous insufficiency Plan Continue Zyvox (day 3) - blood cx have been negative and MRI does not show osteomyelitis - when ready for discharge, the patient can continue on Zyvox or can be switched to PO Augmentin and Doxycycline for another 5-7 days with outpatient follow up with PMD
[2016-10-24 17:27] VITALS: BP 130/74; PULSE 75; RESP 20; TEMP 97.9; O2SAT 97
--- NOTE | 2016-10-25 00:56 | CP.PCM.DIS ---
"<BERNARD HOWELL - Last Filed: 10/25/16 00:43> Provider - Provider Date of Admission: 10/21/16 21:05 Attending physician: Elly Rojas MD Primary care physician: Rena Leal MD Time Spent in preparation of Discharge (in minutes): 50 Hospital Course - Lab Results Lab Results: Micro Results 10/24/16 11:30 Leg - Left Gram Stain - Final 10/22/16 14:48 Skin - Rosario Gram Stain - Final 10/22/16 14:48 Skin - Rosario Wound Culture - Preliminary No growth. Most Recent Lab Values WBC 4.9 10^3/ul (4.5-11.0) 10/24/16 06:45 RBC 4.36 10^6/uL (3.5-6.1) 10/24/16 06:45 Hgb 12.5 gm/dL (14.0-18.0) L 10/24/16 06:45 Hct 39.7 % (42.0-52.0) L 10/24/16 06:45 MCV 91.1 fL (80.0-105.0) 10/24/16 06:45 MCH 28.7 pg (25.0-35.0) 10/24/16 06:45 MCHC 31.5 g/dl (31.0-37.0) 10/24/16 06:45 RDW 13.5 % (11.5-14.5) 10/24/16 06:45 Plt Count 140 10^3/uL (120.0-450.0) 10/24/16 06:45 MPV 12.7 fl (7.0-11.0) H 10/24/16 06:45 Gran % 64.3 % (50.0-68.0) 10/21/16 17:20 Lymph % (Auto) 18.2 % (22.0-35.0) L 10/21/16 17:20 Wilbarger % (Auto) 14.6 % (1.0-6.0) H 10/21/16 17:20 Eos % (Auto) 2.4 % (1.5-5.0) 10/21/16 17:20 Baso % (Auto) 0.5 % (0.0-3.0) 10/21/16 17:20 Gran # 2.68 (1.4-6.5) 10/21/16 17:20 Lymph # 0.8 (1.2-3.4) L 10/21/16 17:20 [place]ger # 0.6 (0.1-0.6) 10/21/16 17:20 Eos # 0.1 (0.0-0.7) 10/21/16 17:20 Baso # 0.02 K/mm3 (0.0-2.0) 10/21/16 17:20 PT 11.9 Seconds (9.9-11.8) H 10/21/16 17:20 INR 1.10 (0.93-1.08) H 10/21/16 17:20 APTT 27.5 Seconds (23.7-30.8) 10/21/16 17:20 Sodium 140 mmol/L (132-148) 10/24/16 06:45 Potassium 4.3 mmol/L (3.6-5.0) 10/24/16 06:45 Chloride 107 mmol/L (98-107) 10/24/16 06:45 Carbon Dioxide 25 mmol/L (21-33) 10/24/16 06:45 Anion Gap 12 (10-20) 10/24/16 06:45 BUN 13 mg/dL (7-21) 10/24/16 06:45 Creatinine 1.3 mg/dL (0.5-1.4) 10/24/16 06:45 Est GFR ( Amer) > 60 10/24/16 06:45 Est GFR (Non-Af Amer) 54 10/24/16 06:45 Random Glucose 98 mg/dL (70-110) 10/24/16 06:45 Hemoglobin A1c 5.2 % (4.2-6.5) 10/23/16 06:10 Calcium 8.4 mg/dL (8.4-10.5) 10/24/16 06:45 Total Bilirubin 2.3 mg/dL (0.2-1.3) H 10/24/16 06:45 Direct Bilirubin 0.8 mg/dL (0.0-0.4) H 10/23/16 07:30 AST 19 U/L (15-59) 10/24/16 06:45 ALT 23 U/L (7-56) 10/24/16 06:45 Alkaline Phosphatase 42 U/L (38-133) 10/24/16 06:45 NT-Pro-B Natriuret Pep 326 pg/mL (0-450) 10/21/16 17:20 Total Protein 6.0 g/dL (5.8-8.3) 10/24/16 06:45 Albumin 3.4 g/dL (3.0-4.8) 10/24/16 06:45 Globulin 2.6 gm/dL 10/24/16 06:45 Albumin/Globulin Ratio 1.3 (1.1-1.8) 10/24/16 06:45 Procalcitonin < 0.05 NG/ML (0.19-0.49) L 10/22/16 12:45 - Hospital Course Hospital Course: Mr. Dav Sims is a 75 y/o male with PMHx significant for BPH and venous insufficiency presents on 10/21/16 with c/o LLE abrasion of 13 days duration. Patient states that he hit his knee with a sharp object 13 days ago, and since then he has developed an infection per his doctor, Dr. Leal. Pt given vancomycin in ED. ID, vascular, and POD consulted for cellulitis of his L anterior lower leg and R ankle. Pt was transferred to the medicine floors for management. MRI was ordered and revealed subQ edema consistent with cellulitis vs passive edema. No evidence of osteomyelitis or abscess. Blood and wound cultures were negative and Procalcitonin levels were <0.05. Per ID, pt placed on Zyvox. Pt remained afebrile and WBC levels were normal. Wound care saw the patient and wounds were cleansed with normal sterile saline, right ankle wound dressed with optifoam, left anterior leg wound dressed with hydrocolloid dressing, and recommend patient to have VNA change dressing MWF with foam dressing and silver dressing b/l. This morning, the patient had no complaints and stated that the pain in both his legs improved dramatically when the wound care dressing was applied. The patient is able to ambulate without any discomfort. Denied chest pain, shortness of breath, n/v/d, fevers or chills. Patient was educated on proper wound dressing by the nurse prior to discharge. Upon discharge, 1. Patient should follow up with his PMD Dr. Rena Leal within [address] Leal can discuss Echo (which was done for mild LE swelling) results with patient. 2.Patient should follow up with [facility] (3rd floor at [facility], ) with Dr. Helms. -An appointment has been made for 10/28/16, at 8AM. Pt should register downstairs before going up to the 3rd floor. -Patient should have VNA change dressing MWF with foam dressing and silver dressing B/L -Right ankle currently dressed with optifoam, and L anterior leg dressed with hydrocolloid dressing -Patient has been educated by nurse on how to change wound dressing. -Dressings are to remain on until Friday's appt with Dr. Helms. 3. Medications: -Patient has been switched to PO Doxycycline 100mg BID and Keflex 500q8 for 6 days. -Prescriptions sent to [facility] pharmacy (Address: [address] [place] [address] | ) - Date & Time of H&P Date of H&P: 10/22/16 Time of H&P: 02:40 Discharge Exam - Head Exam Head Exam: ATRAUMATIC, NORMAL INSPECTION, NORMOCEPHALIC - Eye Exam Eye Exam: EOMI, Normal appearance, PERRL - ENT Exam ENT Exam: Mucous Membranes Moist, Normal Exam - Respiratory Exam Respiratory Exam: Clear to PA & Lateral, NORMAL BREATHING PATTERN, UNREMARKABLE. absent: Chest Wall Tenderness, Rales, Rhonchi, Wheezes, Respiratory Distress - Cardiovascular Exam Cardiovascular Exam: REGULAR RHYTHM, RRR, +S1, +S2. absent: Diastolic murmur, Gallop, JVD, Rubs, Systolic Murmur - GI/Abdominal Exam GI & Abdominal Exam: Normal Bowel Sounds, Soft, Unremarkable. absent: Distended , Tenderness - Extremities Exam Extremities exam: full ROM - Neurological Exam Neurological exam: Alert, Normal Gait, Oriented x3 - Psychiatric Exam Psychiatric exam: Normal Affect, Normal Mood - Skin Skin Exam: Normal Color, Warm Discharge Plan - Discharge Medications Prescriptions: Cephalexin [cephalexin] 500 mg PO Q8 #18 cap Doxycycline Hyclate 100 mg PO BID #12 capsule - Follow Up Plan Condition: FAIR Disposition: HOME/ ROUTINE Instructions: Cellulitis (DC), Cellulitis (GEN), Chronic Wound Care (DC), Fall Prevention (GEN) Additional Instructions: 1. Patient should follow up with his PMD Dr. Rena Leal within [address] Leal can discuss Echo results with patient. 2. Patient should follow up with [facility] (3rd floor at [facility], ) with Dr. Helms. -An appointment has been made for 10/28/16, at 8AM. Pt should register downstairs before going up to the 3rd floor. -Patient should have VNA change dressing MWF with foam dressing and silver dressing B/L -Right ankle currently dressed with optifoam, and L anterior leg dressed with hydrocolloid dressing -Patient has been educated by nurse on how to change wound dressing. 3. Medications: -Patient has been switched to PO Doxycycline 100mg BID and Keflex 500q8 for 6 days. -Prescriptions sent to [facility] pharmacy (Address: [address] [place] [address] | ) kEEP DRESSING ON UNTIL YOU SEE DR Helms ON friday at the wound care center. ask Dr Helms for wound care supply Referrals: Rena Leal MD [Primary Care Provider] - <Elly Rojas - Last Filed: 10/28/16 13:50> Provider - Provider Date of Admission: 10/21/16 21:05 Attending physician: Elly Rojas MD Primary care physician: Rena Leal MD Hospital Course - Lab Results Lab Results: Micro Results 10/24/16 11:30 Leg - Left Gram Stain - Final 10/24/16 11:30 Leg - Left Wound Culture - Final Bacillus Species 10/22/16 14:48 Skin - Rosario Gram Stain - Final 10/22/16 14:48 Skin - Rosario Wound Culture - Final Enterococcus Faecalis Most Recent Lab Values WBC 4.9 10^3/ul (4.5-11.0) 10/24/16 06:45 RBC 4.36 10^6/uL (3.5-6.1) 10/24/16 06:45 Hgb 12.5 gm/dL (14.0-18.0) L 10/24/16 06:45 Hct 39.7 % (42.0-52.0) L 10/24/16 06:45 MCV 91.1 fL (80.0-105.0) 10/24/16 06:45 MCH 28.7 pg (25.0-35.0) 10/24/16 06:45 MCHC 31.5 g/dl (31.0-37.0) 10/24/16 06:45 RDW 13.5 % (11.5-14.5) 10/24/16 06:45 Plt Count 140 10^3/uL (120.0-450.0) 10/24/16 06:45 MPV 12.7 fl (7.0-11.0) H 10/24/16 06:45 Gran % 64.3 % (50.0-68.0) 10/21/16 17:20 Lymph % (Auto) 18.2 % (22.0-35.0) L 10/21/16 17:20 Wilbarger % (Auto) 14.6 % (1.0-6.0) H 10/21/16 17:20 Eos % (Auto) 2.4 % (1.5-5.0) 10/21/16 17:20 Baso % (Auto) 0.5 % (0.0-3.0) 10/21/16 17:20 Gran # 2.68 (1.4-6.5) 10/21/16 17:20 Lymph # 0.8 (1.2-3.4) L 10/21/16 17:20 [place] # 0.6 (0.1-0.6) 10/21/16 17:20 Eos # 0.1 (0.0-0.7) 10/21/16 17:20 Baso # 0.02 K/mm3 (0.0-2.0) 10/21/16 17:20 PT 11.9 Seconds (9.9-11.8) H 10/21/16 17:20 INR 1.10 (0.93-1.08) H 10/21/16 17:20 APTT 27.5 Seconds (23.7-30.8) 10/21/16 17:20 Sodium 140 mmol/L (132-148) 10/24/16 06:45 Potassium 4.3 mmol/L (3.6-5.0) 10/24/16 06:45 Chloride 107 mmol/L (98-107) 10/24/16 06:45 Carbon Dioxide 25 mmol/L (21-33) 10/24/16 06:45 Anion Gap 12 (10-20) 10/24/16 06:45 BUN 13 mg/dL (7-21) 10/24/16 06:45 Creatinine 1.3 mg/dL (0.5-1.4) 10/24/16 06:45 Est GFR ( Amer) > 60 10/24/16 06:45 Est GFR (Non-Af Amer) 54 10/24/16 06:45 Random Glucose 98 mg/dL (70-110) 10/24/16 06:45 Hemoglobin A1c 5.2 % (4.2-6.5) 10/23/16 06:10 Calcium 8.4 mg/dL (8.4-10.5) 10/24/16 06:45 Total Bilirubin 2.3 mg/dL (0.2-1.3) H 10/24/16 06:45 Direct Bilirubin 0.8 mg/dL (0.0-0.4) H 10/23/16 07:30 AST 19 U/L (15-59) 10/24/16 06:45 ALT 23 U/L (7-56) 10/24/16 06:45 Alkaline Phosphatase 42 U/L (38-133) 10/24/16 06:45 NT-Pro-B Natriuret Pep 326 pg/mL (0-450) 10/21/16 17:20 Total Protein 6.0 g/dL (5.8-8.3) 10/24/16 06:45 Albumin 3.4 g/dL (3.0-4.8) 10/24/16 06:45 Globulin 2.6 gm/dL 10/24/16 06:45 Albumin/Globulin Ratio 1.3 (1.1-1.8) 10/24/16 06:45 Procalcitonin < 0.05 NG/ML (0.19-0.49) L 10/22/16 12:45 Attending/Attestation - Attestation I have personally seen and examined this patient.: Yes I have fully participated in the care of the patient.: Yes I have reviewed all pertinent clinical information, including history, physical exam and plan: Yes Notes (Text): I have seen and examined the patient at bedside. Agree with the note above with the following additions/ exceptions: This is 75 year old male with history of BPH who was admitted for LLE cellulitis and right lower extremity ulcer. MRI rule out osteomyelitis. Podiatry consult appreciated. Patient is on zyvox. Patient will be sent home on doxy and augmentin. Procal is low. Upon discharge patient will follow up with Rena Gordon. Dr Elly Rojas"
--- NOTE | 2016-10-25 09:30 | CARD ---
APPROVED REPORT EXAM: Two-dimensional and M-mode echocardiogram with Doppler and color Doppler. Other Information Quality : FairRhythm : INDICATION LEG SWELLING 2D DIMENSIONS Left Atrium (2D)3.5 (1.6-4.0cm)IVSd1.1 (0.7-1.1cm) LVDd4.3 (3.9-5.9cm)PWd1.0 (0.7-1.1cm) LVDs3.1 (2.5-4.0cm)FS (%) 23.3 % LVEF (%)55.0 (>50%) M-Mode DIMENSIONS Aortic Root2.90 (2.2-3.7cm)Aortic Cusp Exc.1.70 (1.5-2.0cm) Aortic Valve AoV Peak Hevmbayg182.0cm/s Mitral Valve MV E Zwcrpwgz20.1cm/sMV A Rbyrbxyp00.3cm/sE/A ratio0.8 TDI E/Lateral E'0.0E/Medial E'0.0 Tricuspid Valve TR Peak Vhhmrvtn155qv/sRAP [id number] Peak Gr.20mmHg [id number] LEFT VENTRICLE The left ventricle is normal size. There is normal left ventricular wall thickness. The left ventricular function is normal. The left ventricular ejection fraction is within the normal range. There is normal LV segmental wall motion. RIGHT VENTRICLE The right ventricle is normal size. ATRIA The left atrium size is normal. The right atrium size is normal. AORTIC VALVE The aortic valve is mildly calcified. MITRAL VALVE The mitral valve is normal in structure. Mitral regurgitation is trace. TRICUSPID VALVE The tricuspid valve is normal in structure. There is mild tricuspid regurgitation. PULMONIC VALVE The pulmonic valve is not well visualized. GREAT VESSELS The aortic root is normal in size. PERICARDIAL EFFUSION There is no pericardial effusion. <Conclusion> This is a limited study. The left ventricle is normal size. There is normal left ventricular wall thickness. The left ventricular function is normal.
--- NOTE | 2016-10-31 16:07 | CP.PCM.CON ---
History of Present Illness - History of Present Illness History of Present Illness: 75 yr old male seen at bedside for left lower extremity wound banged leg on chair and caught it on a small piece of metal that then became infected. No fluctuance noted Increased pain with palpation. Review of Systems - Review of Systems All systems: reviewed and no additional remarkable complaints except Past Patient History - Infectious Disease Hx of Infectious Diseases: None - Tetanus Immunizations Tetanus Immunization: Unknown - Past Medical History & Family History Past Medical History?: Yes - Past Social History Smoking Status: Never Smoked Chewing Tobacco Use: No Cigar Use: No Alcohol: None Drugs: Denies - CARDIAC Hx Cardiac Disorders: No Hx Hypertension: Yes Hx Peripheral Vascular Disease: Yes (Venous insufficiency) - PULMONARY Hx Respiratory Disorders: No Hx Asthma: No Hx Bronchitis: No Hx Chronic Obstructive Pulmonary Disease (COPD): No Hx Emphysema: No Hx Lung Cancer: No Hx Pneumonia: No Hx Pulmonary Edema: No Hx Pulmonary Embolism: No Hx Respiratory Aspiration: No Hx Respiratory Tract Infection: No Hx Sleep Apnea: No Hx Tuberculosis: No - NEUROLOGICAL Hx Neurological Disorder: No - HEENT Hx HEENT Problems: No - RENAL Hx Chronic Kidney Disease: Yes Hx Kidney Stones: Yes - ENDOCRINE/METABOLIC Hx Endocrine Disorders: No - HEMATOLOGICAL/ONCOLOGICAL Hx Blood Disorders: No - INTEGUMENTARY Hx Dermatological Problems: No - MUSCULOSKELETAL/RHEUMATOLOGICAL Hx Musculoskeletal Disorders: No Hx Falls: No - GASTROINTESTINAL Hx Gastrointestinal Disorders: Yes Hx Gastroesophageal Reflux: Yes - GENITOURINARY/GYNECOLOGICAL Hx Genitourinary Disorders: Yes Hx Prostate Problems: Yes (enlarged) - PSYCHIATRIC Hx Psychophysiologic Disorder: No - SURGICAL HISTORY Hx Surgeries: No - ANESTHESIA Hx Anesthesia: No Hx Anesthesia Reactions: No Hx Malignant Hyperthermia: No Meds Home Medications: Home Medication List Medication Instructions Recorded Confirmed Type Cephalexin [cephalexin] 500 mg PO Q8 #18 cap 10/24/16 Rx Doxycycline Hyclate 100 mg PO BID #12 capsule 10/24/16 Rx Allergies/Adverse Reactions: Allergies Allergy/AdvReac Type Severity Reaction Status Date / Time No Known Allergies Allergy Verified 10/21/16 16:26 Physical Exam - Extremities Exam Additional comments: 2/4 palpable pedal pulses to lower extremities , Mild lower extremity edema Sensation to lower extremity intact, DTR at ankle intact Ulceration interior marc measuring 5x5cm, dry eschar Rim of cellulitis surrounding wound 5 cm from all directions Mild calor. No fluctuance noted Increased pain with palpation. Results - Vital Signs Recent Vital Signs: Last Vital Signs Temp 97.9 F 10/24/16 17:26 Pulse 75 10/24/16 17:26 Resp 20 10/24/16 17:26 BP 130/74 10/24/16 17:26 Pulse Ox 97 10/24/16 17:26 - Labs Result Diagrams: 10/24/16 06:45 10/24/16 06:45 - Impressions Impression: WBC- 4.9 H&H 13.5/43.2 Platelets-136 BUN Creatnine 15/1.3 Hemoglobin A1c -5.2 Grossly within normal limits Bilirubin- Elevated to 3.1 No growth after 24 from wound or blood Lower Extremity US - negative for DVT Lower Extremity MRI - negative for osteomyelitis / No foreign body 2/4 palpable pedal pulses to lower extremities , Mild lower extremity edema Sensation to lower extremity intact, DTR at ankle intact Assessment & Plan - Assessment and Plan (Free Text) Assessment: Contusion to left leg with cellulitis Plan: Plan of treatment duoderm over wound to help macerate in order to get a better culture of wound, and help vitalize the tissue, for follow up in 24hrs. - Date & Time Date: 10/23/16 Time: 17:25 Attending/Attestation - Attestation I have personally seen and examined this patient.: Yes I have fully participated in the care of the patient.: Yes I have reviewed all pertinent clinical information: Yes
== END 2016-10-24 18:41 | disposition home or self-care (01) | DRG 277 ==
LOC: ED 16:03 → ERH 21:05 → 5RNO 10-22 00:37
PROVIDERS: ADMIT Internal Medicine; ATTEND Hospitalist
DX: L03.116 Cellulitis of left lower limb (principal); L97.819 Non-pressure chronic ulcer of other part of right lower leg with unspecified severity; I87.2 Venous insufficiency (chronic) (peripheral); N40.0 Benign prostatic hyperplasia without lower urinary tract symptoms; I10 Essential (primary) hypertension; N28.9 Disorder of kidney and ureter, unspecified